=== PATIENT | male | born 1985 | race Caucasian/White ===

== ENCOUNTER 2018-05-11 09:23 | Emergency (ER) | payer BC, SELFPAY ==
[2018-05-11 09:24] VITALS: BP 140/93; PULSE 69; RESP 15; TEMP 36.4; O2SAT 97; BMI 34.7
--- NOTE | 2018-05-11 10:04 | EKG12_ITS ---
Test Reason : Blood Pressure : / mmHG Vent. Rate : 066 BPM Atrial Rate : 066 BPM P-R Int : 172 ms QRS Dur : 088 ms QT Int : 376 ms P-R-T Axes : 029 004 -02 degrees QTc Int : 394 ms Normal sinus rhythm with sinus arrhythmia Nonspecific T wave abnormality Confirmed by LOBITO COULTER, CHELY ([id number]), telegraph editor JOSE JOHNSON ([id number]) on 05/13/2018 1:38:49 PM Referred By: Sarahy Alcazar Confirmed By:CHELY ROBIN MD
--- NOTE | 2018-05-11 10:04 | CT_ITS ---
STUDY: CT BRAIN WITHOUT CONTRAST REASON FOR EXAM: Male, 32 years old. Dizziness for months RADIATION DOSAGE (If Supplied By Facility): CTDIvol = ( 60.81 ) mGy, DLP = ( 998.67 ) mGycm TECHNIQUE: Transaxial CT imaging of the brain was performed without administration of intravenous contrast material. Individualized dose optimization techniques were used for this CT. COMPARISON: 08/17/2016 FINDINGS: Normal soft tissue structures. Normal calvarium. Normal size ventricles and extra-axial spaces for the patient's age. Normal white matter tracts of the cerebral hemispheres. Normal basal ganglia and thalami. Normal brainstem. Normal cerebellum. There is no intracranial hemorrhage. There are no findings of an acute ischemic infarction. Normal visualized paranasal sinuses. CT/Brain/Head without Contrast IMPRESSION: Normal unenhanced CT scan of the brain. Electronically Signed: Jeff Merchant MD at 10:57 EDT , Service support ,
--- NOTE | 2018-05-11 10:06 | RAD_ITS ---
STUDY: X-RAY CHEST REASON FOR EXAM: Male, 32 years old. Rib cage pain TECHNIQUE: PA and lateral views of the chest. COMPARISON: None. FINDINGS: EKG leads overlie the chest The lungs are clear and expanded. There is no demonstrated pleural abnormality. Normal size heart. Normal mediastinum and maude. Normal visualized pulmonary arteries. Normal visualized aortic arch and descending thoracic aorta. Normal visualized thoracic spine. Normal visualized ribs, clavicles, and shoulders. There is no demonstrated abnormality of the visualized soft tissue structures of the upper abdomen. RAD/Chest PA and Lateral IMPRESSION: Normal x-ray examination of the chest. Electronically Signed: Jeff Merchant MD at 11:08 EDT , Service support ,
[2018-05-11 10:49] LABS: ALB/GLOB Ratio 1.2 RATIO (0.9-2.4); AST(SGOT) 14 U/L (15-37); Alanine Aminotransfer ALT/SGPT 31 U/L (16-61); Albumin, Serum 3.9 g/dL (3.2-5.0); Alkaline Phosphatase 58 U/L (45-117); Anion Gap 8 (5-15); BUN 14 mg/dL (7-18); BUN/Creat Ratio 11.7 RATIO (10-20); Calcium,Total 8.8 mg/dL (8.5-10.1); Chloride 109 mmol/L (98-107); EST Glomerular Filtration Rate 74 mL/min (>60); Est Glom Filt Rate - Afr Amer 90 mL/min (>60); Estimated Creatinine Clearance 79.75 ml/min; Globulin 3.3 g/dL (2.2-4.2); Glucose 110 mg/dL (74-106); Lipase 62 U/L (73-393); Potassium 3.9 mmol/L (3.5-5.1); Protein, Total 7.2 g/dL (6.4-8.2); Sodium Level 143 mmol/L (136-145)
[2018-05-11] MEDS: 0.9% Normal Saline 1,000 ML 1000 ML IV (11:04)
[2018-05-11] MEDS: Metoclopramide 10 MG/2 ML Vial IV (11:05)
[2018-05-11] MEDS: DiphenhydrAMINE 50 MG/ML Syringe 25 MG IV (11:05)
[2018-05-11 11:44] VITALS: BP 128/82; BP 143/95; BP 147/72; PULSE 56; PULSE 70; PULSE 83
[2018-05-11 12:06] LABS: Bacteria 0 SEEN /hpf (None Seen); Red Blood Cells-Urine 0 SEEN /hpf (0-5); Squamous Epithelial Cells - UA 0 SEEN /hpf (0-5)
[2018-05-11 12:06] LABS: Absolute Lymphocyte Count 2.42 X10^3/ul (0.83-4.51); Absolute Neutrophil Count 2.8 X10^3/uL (2.0-7.7); Basophil# 0.03 X10^3/uL; Basophil% 0.5 % (0-1); Eosinophil# 0.32 X10^3/uL; Eosinophils% 5.3 % (0-5); Hematocrit 43.4 % (40-54); Hemoglobin 14.6 g/dl (13.0-16.5); Lymphocyte # 2.42 X10^3/ul (4.0); Lymphocyte % 40.3 % (19-41); Mean Corp Hgb Conc 33.6 g/gl (32-36); Mean Corpuscular Hgb 28.7 pg (27.0-32.0); Mean Corpuscular Volume 85.3 fL (80-94); Mean Platelet Vol. 11.8 fl (6.2-12.0); Monocyte# 0.42 X10^3/uL; Neutrophil # 2.81 X10^3/uL (2.7-7.7); Neutrophil % 46.7 % (47-70); POSITIVE COUNT NO; POSITIVE DIFFERENTIAL NO; POSITIVE MORPHOLOGY NO; Platelet Count 211 K/mm3 (150-450); RBC Distribution Width CV 11.9 % (11.6-14.6); RBC Distribution Width SD 36.7 fl (35.1-43.9); Red Blood Count 5.09 M/mm3 (4.6-6.2)
[2018-05-11 12:08] LABS: Color, Urine Yellow (Yellow); Glucose, Dipstick Normal (Normal); Ketone-Dipstick Negative (Negative); Leukocyte Esterase-Dipstick Negative /ul (Negative); Nitrite-Dipstick Negative (Negative); Occult Blood-Urine Negative /ul (Negative); Protein-Dipstick 15 mg/dl (Negative); Specific Gravity, Urine 1.025 (1.002-1.030); Urine Bilirubin Dipstick Negative (Negative); Urine Clarity Clear (Clear); Urine Urobilinogen Normal (Normal)
[2018-05-11 12:42] LABS: Mucous, Urine 1+ /hpf (<or=2+); White Blood Cells 0-5 SEEN /hpf (0-5)
--- NOTE | 2018-05-11 12:55 | ED.VISSUMM ---
- ER Visit Summary Date of Service: 05/11/18 Chief Complaint: [Dizziness] History of Present Illness: The patient is a 32 M [who presents the emergency department with 2 years of episodic dizziness. He says about once a month he gets a headache in his bilateral temples epigastric pain and gets dizzy when he stands up or turns his head. He came in today because his encouraged him to get evaluated. He is having dizziness and headache at this time. No fevers or chills no chest pain or shortness of breath. He has been urinating normally. He is otherwise healthy he has had a history of 6 shoulder ligamentous injury. He does not smoke he does not drink he has a primary care physician but does not follow with Dr. Echavarria] Physical Examination: [] WN WD NAD PERRL EOMI MMM Retracted TMs bilaterally with no erythema or dullness NECK supple and nontender, no masses RRR no murmur rub or gallop, no peripheral edema, symmetric radial pulses CTAB no respiratory distress ABDOMEN is soft and nontender, normal bowel sounds, no distension, no rebound or guarding SKIN is warm and dry no rashes Alert and Oriented x3, CN II-XII in tact, no motor or sensory deficits, gait normal heel to toe walking is normal however patient does complain of dizziness during this exam No lymphadenopathy Test Results: [] Emergency Department Course and Treatment: [EKG is sinus at a rate of 66 with a sinus arrhythmia. Screening labs are unremarkable. CT head and chest x-ray are unremarkable. I am uncertain of the cause of the patient's dizziness. I did ask that he follow-up with Dr. Echavarria as he may need MRI but I do not feel this is emergent. I will give him a prescription for meclizine and Zofran. Reglan and Benadryl did not much help in the emergency department.] Treatment Plan: [] Disposition: [Discharge] Impression: [. Headache 2. Dizziness] This note was generated with [employer] dictation software. It may contain incorrect words, spelling, and punctuation that were not noted in review of the chart prior to signing ED Disposition - Plan for ED Patient: Chief Complaint: Dizziness Referrals: Care Physician,No Primary [Primary Care Provider] -
--- NOTE | 2018-05-11 12:59 | ED.DEP ---
ED Disposition - Plan for ED Patient: Chief Complaint: Dizziness Instructions: ED Dizziness UKO, ED Cephalgia Unspecified Prescriptions: Ondansetron [Zofran Odt] 4 mg PO Q8H PRN PRN #10 tablet PRN Reason: Nausea/Vomiting Meclizine HCl [Antivert] 25 mg PO 4X/DAY PRN PRN #20 tablet PRN Reason: Dizziness Referrals: Miki Echavarria DO [COURTESY STAFF PHYSICIAN] - 3-5 Days
[2018-05-11 13:10] VITALS: BP 112/80; PULSE 67; RESP 18; O2SAT 99
== END 2018-05-11 13:11 | disposition home or self-care (01) ==
PROVIDERS: Emergency Provider Emergency Medicine
DX: R51 Headache (principal); R42 Dizziness and giddiness
CPT/HCPCS: 70450; 71046; 80053; 81001; 83690; 84484; 85025; 93005; 96361; 96374; 96375; 99285; J7030

== ENCOUNTER → 2020-06-17 09:13 | Outpatient (CLI) | payer OTHER, SELFPAY ==
[2020-05-28 09:40] VITALS: BMI 34.7
--- NOTE | 2020-06-17 09:13 | RAD_ITS ---
STUDY: X-RAY - PELVIS AND RIGHT HIP REASON FOR EXAM: Male, 34 years old. PREVIOUS INJURY WITH FXS RIGHT HIP AREA. PREVIOUS FILMS AT OUTSIDE FACILITY TECHNIQUE: 3 views of the pelvis and hip. COMPARISON: None. FINDINGS: There is a non-specific bowel gas pattern. Normal visualized soft tissue structures. Normal bilateral iliac wings, sacroiliac joints and visualized sacrum. Healed fracture along the lateral aspect of the right superior pubic ramus as well as a healed fracture of the right inferior pubic ramus. Normal pubic symphysis. Normal bilateral ischial tuberosities. Normal visualized femoral head. Normal acetabulum. There is mild articular joint space narrowing of the hip. RAD/HIP, UNI W/ Pelvis 2-3 Views IMPRESSION: Healed fracture of the lateral aspect of the right superior pubic ramus as well as a fracture of the right inferior pubic ramus. Joint space narrowing of the right hip joint. Electronically Signed: Sami Scott, at 14:43 EDT , Service support ,
--- NOTE | 2020-06-17 10:15 | RAD_ITS ---
STUDY: X-RAY - PELVIS REASON FOR EXAM: Male, 34 years old. PAIN ... ORTHOPEDIC REQUESTED OBLIQUE VIEWS TECHNIQUE: Oblique views were obtained. COMPARISON: None. FINDINGS: There is a non-specific bowel gas pattern. Normal visualized soft tissue structures. Normal bilateral iliac wings, sacroiliac joints and visualized sacrum. Healed fracture of the lateral aspect of the right superior pubic ramus as well as healed fracture of the right inferior pubic ramus. Normal pubic symphysis. Normal ischial tuberosities. Normal visualized right femoral head. Normal right acetabulum. Normal right hip joint. Normal visualized left femoral head. Normal left acetabulum. Normal left hip joint. RAD/Pelvis 1 or 2 Views IMPRESSION: Healed right superior and inferior pubic rami fractures. Electronically Signed: Sami Scott, at 15:21 EDT , Service support ,
== END ==
PROVIDERS: Referring Provider Physician Assistant; Visit Provider Physician Assistant
DX: S32.401A Unspecified fracture of right acetabulum, initial encounter for closed fracture (principal)
CPT/HCPCS: 72170; 73502

== ENCOUNTER → 2020-08-14 07:50 | Outpatient (CLI) | payer OTHER, SELFPAY ==
[2020-07-16 09:08] VITALS: BMI 34.7
--- NOTE | 2020-08-14 07:51 | CT_ITS ---
STUDY: CT SCAN HIP RIGHT REASON FOR EXAM: Male, 34 years old. Right acetabular fracture, fell off roof 04/2020, no surgical intervention. Complains of occasional aching in hip. RADIATION DOSAGE (If Supplied By Facility): CTDIvol = ( 22.42 ) mGy, DLP = ( 783.74 ) mGycm. Individualized dose optimization techniques were used for this CT.? TECHNIQUE: Multiple axial tomographic images were obtained without intravenous contrast demonstration. Coronal and sagittal reconstruction was obtained as well. COMPARISON: Comparison is made with prior radiograph of the right hip dated 07/16/2020. FINDINGS: There is a nondisplaced fracture involving the roof of the acetabulum. This extends into the medial aspect of the roof of the acetabulum. This also extends into the anterior rim of the acetabulum. There is also evidence of a nondisplaced fracture along the lateral aspect of the right superior and inferior pubic rami. There is evidence of some bony callus formation. There is good alignment. CT/Extremity Lower without Contra IMPRESSION: Stable nondisplaced right acetabular fracture as described. There Healing fractures of the right lateral superior and inferior pubic rami Electronically Signed: Sami Scott, at 15:28 EDT , Service support ,
== END ==
PROVIDERS: Referring Provider Orthopaedic Surgery; Visit Provider Orthopaedic Surgery
DX: S32.401A Unspecified fracture of right acetabulum, initial encounter for closed fracture (principal)
CPT/HCPCS: 73700

== ENCOUNTER 2020-10-22 09:00 | Outpatient (RCR) | payer OTHER, SELFPAY ==
[2020-07-02 14:19] VITALS: BMI 34.7
[2020-07-16 09:08] VITALS: BMI 34.7
--- NOTE | 2020-07-23 08:14 | HP.PTEVAL ---
Patient's Visit Information ORALIA ALLRED is a 34 year old M referred to Physical Therapy by GIN Joshi with a diagnosis of FRACTURE RIGHT ACETABULUM. Date of Evaluation: 07/22/20 Physical Therapist: Eleazar Montes, PT, Cert MDT, OCS - Visit Plan Frequency: 2-3x /Week Duration: 2-4 Weeks Plan: PRECAUTION PWB WITH FWW ,X-RAYS SHOWED ACETABULAR NOT FULLY HEALED PER MD. PT INTERVENTIONS ROM ,INTIALLY PWB WITH WALKER,STRENGTHENING EX'S RIGHT HIP/QUADS/HAMS,FUNCTUIONAL STRENGTHENING,GAIT/BALANCE TRAINING - Subjective This 34 y/o male presents to physical therapy with right acetabulum fracture. Patient fell at work [employer] 6 th climbing of convyor and fell on right hip. Patient had immediated pain ER lara Wilkerson in [place] and hospital 2 days x-rays showed actetabular 3 ed didnt need surgery .Patient d/c to home with walker TDWB RLE for 10 weeks,then seen DR Martin wheeler to PWB with FWW some WB. Did x-rays still healling. Patient has some groin pain. Denies parathesia/tingling. Patient sleeping is affected. Patient has 2 steps with entance. One story home. Patient has [facility] . Patient condtion of acetabulum fx conidtion affects QOL and RTW/housework tasks. VOCATION: [employer]. SOCAIL: - Pain Right Hip Pain Intensity (Out of 10): 0 Pain Intensity Range: 10 - Objective POSTURE: mild foward posture. GAIT: ambulates with fww with PWB RLE. BALANCE: FAIR+ with fww. STAIRS: one step at a time with rail. PROM HIP: flexion 110 degrees,abduction 40 degrees,IR 25 degrees,ER 60 degrees. MMT: quads/hams 4/5,hip flexion 4/5,hip abd 4-/5,ankle 5/5,difficulty with SLR. - Goals Goal 1:: Patient to be I with HEP Goal Time Frame: 6-8 Weeks Goal 2:: Patient to normailize gait community distances Goal Time Frame: 4-6 Weeks Goal 3:: Pateint to improve balance to normal on unlevel and level terraine Goal Time Frame: 6-8 Weeks Goal 4:: Patient increase strength of right hip abd/flexors 4+/5 to improve gait and RTW Goal Time Frame: 6-8 Weeks Goal 5:: Patient to RTW without limitations. Goal Time Frame: 6-8 Weeks Goal 6:: Patient to improve LFES score by 10 15 points or> to improve function and RTW. Goal Time Frame: 6-8 Weeks - Rehabilitation Potential Physical Therapy Diagnosis: This patient fell at work landed on right hip fracture acetabular with gait with FWW, pain,decrease strength ,balance and RTW thus benifit from skilled PT Rehabilitation Potential: Good - Anticipated Interventions Patient/Client Instruction: Educate patient on: Condition, Plan of Care For the Purpose of:: To decrease pain, To increase ROM, To improve muscle performance and motor function, To improve ability to perform ADL's, To increase tolerance to activity/condition/position, To improve performance and independence with ADL's, To improve ability of physical actions for home/community/work/leisure, To improve gait and locomotor functions, To improve health of tissue, To decrease soft tissue restriction, To increase flexibility/ROM, To reduce risk of recurrence, To improve ability to perform tasks related to life management Therapeutic Exercise to Include: Strength training, Endurance training, Balance training, Gait and locomotor training, Passive ROM, Active ROM Comment: QUADS/HAMS/HIP ,PWB WITH WALKER For the Purpose of:: To decrease pain, To increase ROM, To improve muscle performance and motor function, To improve ability to perform ADL's, To increase tolerance to activity/condition/position, To improve ability of physical actions for home/community/work/leisure, To improve health of tissue, To decrease soft tissue restriction, To increase flexibility/ROM, To improve health and function, To improve ability to perform tasks related to life management Thank you for the opportunity to evaluate your patient. For Medicare and Medicare HMO plans, please review the plan of care and approve it. It will need to be FAXED BACK to us at [phone] for Medicare purposes. For Medicare only, by signing this I certify the plan of care. Please let me know if there are questions or concerns regarding this plan of care. Physician Signature: Date:
--- NOTE | 2020-09-04 10:23 | HP.FCE ---
Floor (Occasional 1-33% of Day): 95# Floor (Frequent 34-66% of Day): 47.5# Floor (Constant 67-100% of Day): 20# Floor PDL: Medium-Heavy Knee (Occasional 1-33% of Day): 95# Knee (Frequent 34-66% of Day): 47.5# Knee (Constant 67-100% of Day): 20# Knee PDL: Medium-Heavy Waist (Occasional 1-33% of Day): 95# Waist (Frequent 34-66% of Day): 47.5# Waist (Constant 67-100% of Day): 20# Waist PDL: Medium-Heavy Shoulder (Occasional 1-33% of Day): 65# Shoulder (Frequent 34-66% of Day): 32# Shoulder (Constant 67-100% of Day): 13# Shoulder PDL: Medium Overhead (Occasional 1-33% of Day): 35# Overhead (Frequent 34-66% of Day): 18# Overhead (Constant 67-100% of Day): 7# Overhead PDL: Light-Medium Comments: pt demo good lifting ability- he stated he felt his UB was weak from not being able to work since April. PT put good effort in lift with good lifting mechanics. no difficulties noted. Bending: Frequent Ability (34-66% of day) Squatting: Frequent Ability (34-66% of day) Kneeling: Frequent Ability (34-66% of day) Reaching out: Frequent Ability (34-66% of day) Reaching up: Frequent Ability (34-66% of day) Sitting: Frequent Ability (34-66% of day) Walking: Frequent Ability (34-66% of day) Standing: Frequent Ability (34-66% of day) Duration Sedentary Sedentary Light Light Light Medium Medium Medium Heavy Very Heavy Heavy Occasional (0-33% of day) Frequent (34-66% of day) Constant (67-100% of day) 10 # Negligible Negligible 15 # 8 # Negligible 20 # 10# Negli. 35 # 18 # 7 # 50 # 25 # 10 # 75 # 100 # >100 # 38 # 50 # >50 # 15 # 20 # >20 # Height: 1.68 m Weight:: 102.058 kg Hand Dominance: right Medical History Including Restrictions: This 34 y/o male presents to physical therapy 2019. with right acetabulum fracture. Patient fell at work April 22 climbing of convyor and fell on right hip. Patient had immediated pain ER lara Wilkerson in [place] and hospital 2 days x-rays showed actetabular 3 ed didnt need surgery .Patient d/c to home with walker TDWB RLE for 10 weeks,then seen DR Martin wheeler to [facility] with FWW some WB. Did x-rays still healling but released for WBAT 2019. pt has been seeing physical therapy 2-3 x week to regain his strength. Patient has some groin tightness following Physical therapy but no real pain. pt states he feels he is strong enough to return to work. Denies parathesia/tingling. Diagnoses: Acetabulum fx 19 weeks and two days from DOI Symptoms: sorness Pain: PT reports 0/10 pain - pt states some pain with weather changed but nothing more than 2/10. pt states pain does not limit it him with daily activities at this time. Work History: [employer] for two years pt. pt will return to working in [employer]. Pt states he will works 35-40 hours a week depending on demand. pt states he is required 95# and states this stack of shingles is not ordered very often. 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 pt motivated to return to work. Behavioral: Pt was cooperative during session and put fourth good effort ADLS: Pt lives with and 4 children in 1 story home. three entry and a flight to basement. pt reports ind. with ADLs and IADLS. pt drives ind. and does the grocey shopping. Pt states he is ind. performing yard work. ROM: pt demo ROM WNL Strength: With manual muscle testing pt?s UB tested at 5/5. Pt right LE hip/quad/ham/ tested 5/5 grossly throughout. Pt left hip flexion tested at 4+/5 and quad/hamstring at 5/5. Pt demo good functional strength grossly throughout. Right Repair Table Operator Strength Average: 108.33 Right Repair Table Operator Strength Percentile: 40% Left Repair Table Operator Strength Average: 123.33 Left Repair Table Operator Strength Percentile: 74% Right Lateral Pinch Average: 22.66 Right Lateral Pinch Percentile: 50% Left Lateral Pinch Average: 28.00 Left Lateral Pinch Percentile: 90# Right Tripod Pinch Average: 18.00 Right Tripod Pinch Percentile: 25% Left Tripod Pinch Average: 28.66 Left Tripod Pinch Percentile: 90# Sensation: fili Fine Motor: denies Balance: no loss of balaned noted. Bending: Pt demo the ability bend forward three times, ten times and ten times rapidly. Pt can bend forward on a frequent ability Squatting: Pt demo the ability to squat three times, ten times and ten times rapidly. Pt can squat on a frequent ability. Kneeling: Pt demo the ability to kneel three times, ten times and ten times rapidly. Pt can kneel on a frequent ability . Reaching out/up: Pt demo the ability to reach up/out three times, ten times and ten times rapidly. Pt can reach out/up on a frequent ability. Walking: Pt demo the ability to ambulate for 15 min with a reciprocal gait pattern at good speed. Therapist noted at times some antalgic gait but for few steps. Pt can ambulate on a frequent ability. Standing: pt demo the ability to stand for 10 min shifting body weight. pt can stand on a frequent ability. Sitting: pt demo the ability to stand for 30 min with no apparent discomfront. pt can stand on a frequent ability. Climbing Stairs: Pt demo the ability to ascend and descend ten steps in a reciprocal step pattern no use of handrails. Floor Lift: Pt demo the ability to lift 95# maximally from this level with good ability. Knee Lift: Pt demo the ability to lift 95# maximally from this level with good ability. Waist Lift: Pt demo the ability to lift 95# maximally from this level with good ability. Shoulder Lift: Pt demo the ability to lift 65# maximally from this level with good ability. Overhead Lift: Pt demo the ability to lift 35# maximally from this level with good ability. Carrying: pt demo the ability to carry 35# for 50 feet with good ability Comments: pt demo good body mechanics with lifting. pt denied any increase in pain.
--- NOTE | 2021-01-17 15:03 | HP.PTDCSUM ---
It has been my pleasure to treat ORALIA ALLRED referred by GIN Joshi, with the diagnosis of FRACTURE RIGHT ACETABULUM for a total of 28 visit(s). Discharge Date: 10/22/20 Please see the following information for a summary of their discharge status. Subjective: Doing good ready for d/c. c/o stiffness. Able to do all functional activities Right Hip Pain Intensity (Out of 10): 0 % Improvement: 90 Objective/Function: GAIT: reciprocal pattern. BALANCE: NORMAL. AROM HIP: FLEXION 110 DEGREES ,ER 60 DEGREES,IR 45 DEGREES. MMT: 5/5 QUADS/HAMS ,4/5 HIP FLEXION/ABDUCTION 4/5,ANKLE 5/5. LIFTIN# BOX LIFTS X10 REPS. STAIRs: NORMAL Goal 1:: Patient to be I with HEP Goal Progress: Goal Met Goal 2:: Patient to normailize gait community distances Goal 3:: Pateint to improve balance to normal on unlevel and level terraine Goal Progress: Goal Met Goal 4:: Patient increase strength of right hip abd/flexors 4+/5 to improve gait and RTW Goal Progress: Goal Met Goal 5:: Patient to RTW without limitations. Goal Progress: Goal Met Goal 6:: Patient to improve LFES score by 10 15 points or> to improve function and RTW. Goal Progress: Goal Met Plan: RTD -D/C If there are questions or concerns regarding this patient's physical therapy, please feel free to call me at [phone]. Thank you for the referral of this patient. Sincerely, Eleazar Montes, PT, Cert MDT, OCS
== END 2020-10-22 19:00 | disposition home or self-care (01) ==
LOC: PT 09:00
PROVIDERS: Referring Provider Physician Assistant; Visit Provider Physician Assistant
DX: S32.401D Unspecified fracture of right acetabulum, subsequent encounter for fracture with routine healing (principal)
CPT/HCPCS: 97110; 97161; 97530; 97750

== ENCOUNTER 2024-03-19 21:15 | Emergency (ER) | payer OTHER, SELFPAY ==
[2024-03-19 21:15] VITALS: BP 132/99; PULSE 88; RESP 18; TEMP 36.4; O2SAT 93; BMI 36.5
--- NOTE | 2024-03-19 21:45 | RAD_ITS ---
INDICATION: injury EXAMINATION/TECHNIQUE: X-RAY - RIGHT XR Elbow Min 3 Views COMPARISON: FINDINGS: BONES: No fracture demonstrated. JOINTS: No dislocation. SOFT TISSUES: Unremarkable. RAD/Elbow min 3 Views IMPRESSION: No evidence of fracture. Electronically Signed: Karly Martinez MD at 22:13 EDT ,
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
== END 2024-03-19 22:44 | disposition home or self-care (01) ==
PROVIDERS: Emergency Provider Emergency Medicine; Visit Provider Emergency Medicine
DX: S46.211A Strain of muscle, fascia and tendon of other parts of biceps, right arm, initial encounter (principal); X58.XXXA Exposure to other specified factors, initial encounter
CPT/HCPCS: 73080; 99283